=== PATIENT | female | born 1965 | race Caucasian/White ===

== ENCOUNTER → 2020-08-18 | Day surgery (SDC) | payer BC, OTHER ==
[~2020-08-18] MED LIST: FENTANYL CITRATE/PF 100MCG/2 ML INJ ONE; GLUCAGON FOR INJ 1 MG VIAL ONE; HYOSCYAMINE 0.125 MG TAB ONE; MIDAZOLAM HCL 2 MG/2 ML VIAL ONE; PROPOFOL IV EMULSION 10 MG/ML 20 ML VIAL ONE
[2020-08-18 10:31] VITALS: BP 127/72
--- NOTE | 2020-08-18 11:35 | Operative Report ---
DATE OF PROCEDURE: 08/18/2020 SURGEON: Farhat Wisdom MD PROCEDURE: Colonoscopy with biopsies. INDICATIONS FOR COLONOSCOPY: Colorectal cancer screening, lower abdominal pain, intermittent loose stools. MEDICATIONS: The patient was done under MAC, please see anesthesiologist's note. PROCEDURE IN DETAIL: With the patient in the left lateral decubitus position, a flexible fiberoptic Olympus colonoscope was inserted into the rectum with ease and advanced all the way to the cecum. Mucosa overlying the cecum appeared to be within normal limits. The ileocecal valve was intubated and the scope was advanced into the terminal ileum. Several minute ulcers were noted in the terminal ileum and biopsies were obtained. The scope was then withdrawn back into the colon. It was then withdrawn slowly. Mucosa overlying the ascending and the transverse appeared to be within normal limits. Some patchy mild inflammatory changes were noted in the left colon and rectum, and random biopsies were obtained. The scope was then retroflexed into the distal rectum and small internal hemorrhoids were noted, none of which was actively bleeding. The scope was then straightened out and it was subsequently withdrawn after securing an adequate stool specimen that was sent for the appropriate stool studies. The patient tolerated the procedure well. IMPRESSION: 1. Ulcerated terminal ileum, biopsied. 2. Patchy inflammatory changes, left colon and rectum, biopsies obtained. 3. Proctitis, mild, biopsied. 4. Internal hemorrhoids, none actively bleeding. PLAN: Follow up histology. Follow up stool studies. Initiate Bentyl 10 mg one p.o. t.i.d. VSL#3 one p.o. b.i.d. Check IBD panel, CRP, and sedimentation rate. Farhat Wisdom MD [facility] [place] /[id number] cc: Marie Haynes DO
[2020-08-18 14:43] LABS: WBC,FECAL (FECAL LACTOFERRIN) NEGATIVE (NEGATIVE)
[2020-08-19 10:15] LABS: C DIFFICILE TOXIN A&B AMP PROB NEGATIVE (NEGATIVE)
== END | disposition home or self-care (01) ==
LOC: OR 06:28
PROVIDERS: ATTEND Internal Medicine Gastroenterology
DX: Z12.11 Encounter for screening for malignant neoplasm of colon (principal); K63.3 Ulcer of intestine; K62.89 Other specified diseases of anus and rectum; K52.9 Noninfective gastroenteritis and colitis, unspecified; K64.8 Other hemorrhoids; K63.89 Other specified diseases of intestine; K59.09 Other constipation; R42 Dizziness and giddiness; I34.1 Nonrheumatic mitral (valve) prolapse; E73.9 Lactose intolerance, unspecified; Z01.810 Encounter for preprocedural cardiovascular examination; Z01.812 Encounter for preprocedural laboratory examination; Z11.59 Encounter for screening for other viral diseases; Z68.30 Body mass index [BMI] 30.0-30.9, adult
CPT/HCPCS: 36415; 45380; 83630; 83993; 85651; 86140; 86256; 86671; 87045; 87177; 87328; 87493; 93005; J1610; J2250; J2704; J3010; U0002